=== PATIENT | male | born 2005 | race Caucasian/White ===

== ENCOUNTER 2025-03-10 17:30 | Emergency (ER) | payer BC ==
[2025-03-10] MEDS ORDERED: Sodium Chloride 0.9% 10 ML Syringe FLUSH PRN (19:17)
[2025-03-10] MEDS ORDERED: Sodium Chloride 0.9% 2.5 ML Syringe FLUSH PRN (19:17)
[2025-03-10] MEDS: Ondansetron 4 MG/2 ML SDV IVPUSH ONE (19:29)
[2025-03-10] MEDS: Ketorolac 30 MG/ML SDV IVPUSH ONE (19:29)
[2025-03-10] MEDS: Sodium Chloride 0.9% 1,000 ML IV SCH (19:29)
[2025-03-10] MEDS: diphenhydrAMINE 50 MG/ML SDV IVPUSH ONE (19:30)
== END 2025-03-10 20:50 | disposition home or self-care (01) ==
LOC: MW.ED 17:30
DX: G43.109 Migraine with aura, not intractable, without status migrainosus (principal)
CPT/HCPCS: 70450; 96374; 96375; 99284; J1200; J1885; J2405; J7030; 99283